=== PATIENT | female | born 1980 | race African-American/Black ===

== ENCOUNTER 2017-09-07 10:16 | Emergency (ER) | payer OTHER ==
[~2017-09-07] VITALS: Ht 152.4 cm; Wt 58.2 kg
[~2017-09-07 10:16] MED LIST: ADVAIR HFA120 INHALA IH; ADVIL200 M1 PO; ALBUTEROL2.5 MG/0.5 IH; DOCUSATE SODIU100 MG PO; MOTRIN800 MG PO; Mineral Oil PO; NAPROXEN500 MG PO; NICODERM CQ1 EAC1 TD; ULTRAM50 MG PO; VALIUM5 MG PO; VENTOLIN HFA18 GM IH
[2017-09-07 10:31] VITALS: BP 119/75
[2017-09-07 11:03] LABS: HEMATOCRIT 40.1 % (36.0-46.0); HEMOGLOBIN 13.5 G/DL (11.9-15.5); MCH 27.9 PG (29.0-34.0); MCHC 33.7 G/DL (30.0-36.0); MCV 82.9 FL (83-99); PLATELET COUNT 264 K/uL (156-360); RBC DIS.WIDTH-CV 14.4 % (11.8-14.6); RBC DIS.WIDTH-SD 43.3 % (39-53); RED BLOOD COUNT 4.84 M/uL (3.80-5.20)
[2017-09-07 11:11] LABS: CHLORIDE 103 mEq/L (99-109); POTASSIUM 3.6 mEq/L (3.7-5.4); SODIUM 137 mEq/L (136-147)
[2017-09-07 11:13] LABS: GLUCOSE 101 mg/dL (70-99)
[2017-09-07 11:16] LABS: CREATININE 0.8 mg/dL (0.6-1.3); GFR ESTIMATE (CALCULATED) > 59 mL/min/
[2017-09-07 11:17] LABS: UREA NITROGEN (BUN) 10 mg/dL (9-23)
== END 2017-09-07 11:26 | disposition left against medical advice (07) ==
LOC: EME 10:16
DX: R06.02 Shortness of breath (principal); Z53.21 Procedure and treatment not carried out due to patient leaving prior to being seen by health care provider
CPT/HCPCS: 71046; 80048; 85027